=== PATIENT | female | born 1990 | race Caucasian/White ===

== ENCOUNTER → 2020-07-20 | Outpatient (CLI) | payer BC | END | disposition home or self-care (01) | LOC: CFH 08:09 | PROVIDERS: ATTEND Student in an Organized Health Care Education/Training Program | DX: N64.4 Mastodynia (principal); N64.52 Nipple discharge | CPT/HCPCS: 76642; 77062; 77066; G0279 ==

== ENCOUNTER 2020-08-25 15:14 | Outpatient (CLI) | payer BC | END 2020-08-25 23:59 | disposition home or self-care (01) | LOC: STAR 15:14 | PROVIDERS: ATTEND Surgery | DX: Z20.822 Contact with and (suspected) exposure to COVID-19 (principal); N63.10 Unspecified lump in the right breast, unspecified quadrant | CPT/HCPCS: U0003 ==

== ENCOUNTER 2020-08-31 09:12 | Day surgery (SDC) | payer BC ==
[~2020-08-31] VITALS: Ht 162.6 cm; Wt 58.2 kg
[~2020-08-31 09:12] MED LIST: ACETAMINOPHEN 325 MG TABLET PO PRN; BUPIVACAINE/PF 0.25% ONE; EPHEDRINE 50 MG/ML, 1ML IVPush PRN; FENTANYL PF 100 MCG/2ML IV PRN; HYDROmorphone 1 MG/ML, 1ML INJ IVPush PRN; ISOSULFAN BLUE 10 MG/ML, 5ML IV ONE; LABETALOL 5MG/ML, 20ML IV PRN; ONDANSETRON 2MG/ML, 2ML IVPush PRN; OXYcodone 5 MG/5 ML ORAL.SOL UDC PO PRN; PROMETHAZINE 25 MG/ML, 1ML IVPush PRN; hydrALAzine 20 MG/ML, 1ML IV PRN
[2020-08-31 10:17] VITALS: BP 135/80
[2020-08-31 10:21] LABS: HCG UR SG 1.025 (1.003-1.030)
[2020-08-31] MEDS ORDERED: CHLORHEXIDINE 15 ML UDC ONE (10:22)
[2020-08-31] MEDS ORDERED: CHLORHEXIDINE 15 ML UDC PO ONE (10:30)
[2020-08-31] MEDS ORDERED: LACTATED RINGERS 1,000 ML IV SCH (10:30)
[2020-08-31] MEDS ORDERED: FENTANYL PF 100 MCG/2ML ONE (12:01)
[2020-08-31] MEDS ORDERED: MIDAZOLAM 1 MG/ML, 2ML ONE (12:01)
[2020-08-31] MEDS ORDERED: LIDOCAINE-MPF 2% ,5ML ONE (12:03)
[2020-08-31] MEDS ORDERED: DEXAMETHASONE 4 MG/ML, 5ML ONE ×2 (12:03→12:14)
[2020-08-31] MEDS ORDERED: PROPOFOL 10 MG/ML, 20ML ONE (12:03)
[2020-08-31] MEDS ORDERED: ONDANSETRON 2MG/ML, 2ML ONE (12:03)
[2020-08-31] MEDS ORDERED: KETOROLAC 30 MG/1 ML ONE (12:14)
[2020-08-31] MEDS ORDERED: ACETAMINOPHEN 650 MG/20.3 ML UDC ONE (12:59)
== END 2020-08-31 14:05 | disposition home or self-care (01) ==
LOC: OUT 09:12
PROVIDERS: ATTEND Surgery
DX: N64.52 Nipple discharge (principal); J45.909 Unspecified asthma, uncomplicated; F17.210 Nicotine dependence, cigarettes, uncomplicated; Z79.899 Other long term (current) drug therapy; Z72.89 Other problems related to lifestyle
CPT/HCPCS: 19120; 81025; 88305; J1100; J1885; J2250; J2405; J2704; J3010; J7120